=== PATIENT | male | born 1990 | race Caucasian/White ===

== ENCOUNTER 2017-05-19 14:39 | Emergency (ER) | payer OTHER ==
[~2017-05-19] VITALS: Ht 167.6 cm; Wt 91.4 kg
[~2017-05-19 14:39] MED LIST: BEN25 PO; LEVE250T66 PO; QUET300T5 PO; VENL150C PO
[2017-05-19 15:00] VITALS: Ht 167.6 cm; Wt 91.4 kg
[2017-05-19] MEDS ORDERED: PRED20TA PO (17:09)
[2017-05-19] MEDS ORDERED: TRAM50TA2 PO (17:09)
--- NOTE | 2017-05-19 17:18 | ERD ---
ER Documentation Chief Complaint Chief Complaint Complains of generalized pain and rash Hx of psoriasis HPI Patient is a 27-year-old male with past medical history of psoriasis presenting to the emergency department for exacerbation of his psoriatic rash for the past 3 days. Symptoms are severe and worsening. He describes it all over his body. He is currently using topical treatment only. He denies fevers, chills, or other symptoms at this time. ROS All systems reviewed and are negative except as per history of present illness. Medications Home Meds Active Scripts Tramadol HCl (Tramadol HCl) 50 Mg Tablet, 50 MG PO Q4 Y for PAIN, #15 TAB Prov:ALBERTINA MARES PA-C 05/19/17 Prednisone* (Prednisone*) 20 Mg Tab, 40 MG PO DAILY for 5 Days, #10 TAB Prov:ALBERTINA MARES PA-C 05/19/17 Diphenhydramine Hcl* (Benadryl*) 25 Mg Cap, 25 MG PO Q6, #12 CAP Prov:KRIS CASTILLO MD 03/06/15 Reported Medications Levetiracetam* (Keppra*) Unknown Strength Tab, PO, TAB 03/05/15 Quetiapine Fumarate* (Seroquel* XR) 300 Mg Tab.sr.24h, 300 MG PO HS 12/04/12 Venlafaxine Hcl* (Effexor XR*) 150 Mg Cap.sr.24h, 300 MG PO DAILY 12/04/12 Allergies Allergies: Coded Allergies: No Known Allergy (Unverified , 03/05/15) PMhx/Soc Hx Psychiatric Problems: Yes (DEPRESSION INSOMNIA) Hx Miscellaneous Medical Probl: Yes (PSORIASIS, SEIZURE DISORDER TAKES KEPPRA) Hx Alcohol Use: Yes Hx Substance Use: Yes Hx Tobacco Use: Yes Physical Exam Vitals Vital Signs Date Time Temp Pulse Resp B/P Pulse Ox O2 Delivery O2 Flow Rate FiO2 05/19/17 15:00 98.4 115 20 130/79 99 Physical Exam Const: Nontoxic, well-appearing male in slight distress secondary to pain. Head: Atraumatic Eyes: Normal Conjunctiva ENT: Normal External Ears, Nose and Mouth. Skin: There are multiple scaling patches and plaques noted to the bilateral upper extremities. Multiple patches noted to the abdomen with erythema and positive Auspitz sign. Ext: No cyanosis, or edema Neur: Awake and alert Psych: Normal Mood and Affect Procedures/MDM Patient is a pleasant 27-year-old male presented to the emergency department with complaints of psoriasis flare. The patient is already using topical medication without relief. The patient appears to be in a significant amount of pain and so I will treat him as an outpatient with prescriptions for prednisone and tramadol. The patient's cures report was obtained and utilized in the decision to prescribe pain medication. No significant suspicion for drug -seeking behavior. No evidence of significant cellulitis, however the patient is already on clindamycin and he was advised to continue taking all medications he is currently prescribed for. Low suspicion for Blanco-Francis syndrome, disseminated cellulitis, sepsis, or other emergencies. No evidence of life- threatening pathology at time of discharge. Pt/family in agreement with discharge plan/diagnosis. Pt/family advised to return immediately with any new or worsening symptoms. Follow-up with primary care physician within the next 1- 2 days. Departure Diagnosis: Primary Impression: Rash and other nonspecific skin eruption Condition: Fair Patient Instructions: Self-Care for Skin Rashes Referrals: [facility] YOU HAVE RECEIVED A MEDICAL SCREENING EXAM AND THE RESULTS INDICATE THAT YOU DO NOT HAVE A CONDITION THAT REQUIRES URGENT TREATMENT IN THE EMERGENCY DEPARTMENT. FURTHER EVALUATION AND TREATMENT OF YOUR CONDITION CAN WAIT UNTIL YOU ARE SEEN IN YOUR DOCTORS OFFICE WITHIN THE NEXT 1-2 DAYS. IT IS YOUR RESPONSIBILITY TO MAKE AN APPOINTMENT FOR FOLOW-UP CARE. IF YOU HAVE A PRIMARY DOCTOR --you should call your primary doctor and schedule an appointment IF YOU DO NOT HAVE A PRIMARY DOCTOR YOU CAN CALL OUR PHYSICIAN REFERRAL HOTLINE AT IF YOU CAN NOT AFFORD TO SEE A PHYSICIAN YOU CAN CHOSE FROM THE FOLLOWING [facility] [id number] [facility]. [facility] [address] [facility] [facility] [address] [facility] [facility] [address] [facility] [address] [facility]. [facility]. [address] Additional Instructions: Call your primary care doctor TOMORROW for an appointment during the next 1-2 days.See the doctor sooner or return here if your condition worsens before your appointment time. ALBERTINA MARES PA-C May 19, 2017 17:18
== END 2017-05-19 17:41 | disposition home or self-care (01) ==
LOC: FTE 14:39
DX: R21 Rash and other nonspecific skin eruption (principal)
CPT/HCPCS: 99284